=== PATIENT | male | born 1950 | race Two or more races ===

== ENCOUNTER 2025-09-11 11:57 | Emergency (ER) | payer MEDICARE, SELFPAY ==
[2025-09-11 12:03] VITALS: BP 138/74; PULSE 63; RESP 16; TEMP 36.7; O2SAT 95; BMI 33.6
--- NOTE | 2025-09-11 12:10 | XR_ITS ---
Examination: Fingers, right hand third digit 3 views Technique: AP, oblique, lateral views right hand third digit. Exam date and time: September 11, 2025, 12:35 p.m. INDICATIONS: Patient smashed hand third digit on the car door today with pain FINDINGS: Severe osteopenia No acute fracture No dislocation No foreign body IMPRESSION: No acute fracture
[2025-09-11] MEDS: LIDOCAINE HCL 1% 20 ML VIAL INFL (12:55)
--- NOTE | 2025-09-11 12:58 | PD.EDWOUND ---
ED Wound/Laceration-RME/HPI General Chief Complaint: Wound/Laceration Stated Complaint: SMASHED FINGER IN DOOR. R 3RD DIGIT Time Seen by Provider: 09/11/25 11:59 Arrival date/time: 09/11/25 11:57 75-year-old male presents to the emergency department today stating that he accidentally smashed his finger on his right hand in a door just prior to arrival. Patient injured his right hand third digit Limitations: no limitations Related Data Previous Rx's ?Medication ?Instructions ?Recorded cephalexin 500 mg capsule 500 mg PO BID 7 days #14 caps 09/11/25 ibuprofen 800 mg tablet 800 mg PO TID PRN pain #30 tabs 09/11/25 Allergies Allergy/AdvReac Type Severity Reaction Status Date / Time No Known Allergies Allergy Verified 09/11/25 11:58 Review of Systems Review of Systems Systems Reviewed: All systems reviewed, normal except as documented Constitutional Constitutional: Reports system reviewed and no additional complaints, except as documented, Denies fever(s) and Denies headache(s) Eyes Eyes: Reports system reviewed and no additional complaints, except as documented and Denies blurry vision ENT Ears, Nose, Mouth, and Throat: Reports system reviewed and no additional complaints, except as documented, Denies headache(s), Denies nasal congestion and Denies nasal discharge Cardiovascular Cardiovascular: Reports system reviewed and no additional complaints, except as documented, Denies chest pain and Denies dyspnea Respiratory Respiratory: Reports system reviewed and no additional complaints, except as documented, Denies chest congestion, Denies cough and Denies dyspnea Gastrointestinal Gastrointestinal: Reports system reviewed and no additional complaints, except as documented and Denies abdominal pain Integumentary/Breasts Skin/Breast: Reports system reviewed and no additional complaints, except as documented, Denies rash and Reports wounds (Laceration right hand middle finger) Neurologic Neurologic: Reports system reviewed and no additional complaints, except as documented, Reports as per HPI and Denies headache(s) Past Medical History Social History SMOKING STATUS: Never smoker ED Exam General Limitations: Present no limitations General appearance: Present alert and in no apparent distress Head Head exam: Present atraumatic Eye Eye exam: Present normal appearance, PERRL and EOMI ENT ENT exam: Present normal exam, normal oropharynx and mucous membranes moist Neck Neck exam: Present normal inspection, full ROM and trachea midline Chest Chest inspection: Present normal inspection and symmetric chest wall rise Respiratory Respiratory exam: Present normal lung sounds bilaterally Cardiovascular Cardiovascular exam: Present regular rate, normal rhythm and normal heart sounds Abdominal Exam Abdominal exam: Present soft and normal bowel sounds Extremities Exam Extremities exam: Present full ROM, tenderness, normal capillary refill and joint swelling (Mild swelling, laceration distal aspect of the right middle finger) Back Exam Back exam: Present normal inspection and full ROM Neurological Exam Neurological exam: Present alert, oriented X3 and CN II-XII intact Psychiatric Psychiatric exam: Present normal affect and normal mood Skin Skin exam: Present warm, dry and other (Mild swelling, laceration distal aspect of the right middle finger) Course Quality Measures none Orders Category Date Time Status Set Up Suture Tray STAT Care 09/11/25 12:10 Completed Wound Care NOW Care 09/11/25 12:10 Completed XR finger RT min 2V Stat Exams 09/11/25 12:10 Completed Lidocaine 1% 20 ml [Xylocaine 1% 20 ML] Med 09/11/25 12:10 Discontinued 20 ml INFL X1 ONE cephALEXin [Keflex] Med 09/11/25 12:10 Discontinued 500 mg PO X1 ONE Vital Signs Vital signs: Vital Signs Temperature 98.1 F 09/11/25 12:03 Pulse Rate 63 09/11/25 12:03 Respiratory Rate 16 09/11/25 12:03 Blood Pressure 138/74 H 09/11/25 12:03 Pulse Oximetry (%) 95 09/11/25 12:03 Oxygen Delivery Method Room Air 09/11/25 12:03 O2 saturation 95% room air within normal limits PROCEDURES: Laceration Laceration 1: Site: hand Side (If applicable): right Size (cm): 3 Description: irregular Depth: simple, single layer Local Anesthetic: lidocaine 1% Amount of anesthesia used (mL): 8 Pre-repair: irrigated extensively Skin layer closed with: nylon Suture size (cm): 4-0 Number of sutures: 8 Technique: simple, interrupted Wound / Laceration MDM Narrative MDM Narrative:: On exam patient well-appearing does not appear ill or toxic patient has a laceration right hand middle finger Wound irrigated copiously laceration repaired patient reports tetanus up-to-date Patient given dose of antibiotics prophylactically and discharged home with antibiotics On exam patient has no evidence of tendon or ligamentous injury patient has full range of motion of the digit Explained to the patient patient should have sutures removed in 10 days for worsening symptoms or concerns return immediately Patient data External records reviewed:: [facility] previous records Clinical information provided by:: patient Social determinants that could affect healthcare access:: none Patient has the following chronic illnesses:: None How is presenting disease/condition affected by chronic disease/condition?: no chronic disease Evaluation data The following diagnostics were reviewed and interpreted by me:: radiology exam(s) Lab and/or radiology exams considered but not ordered:: Radiology obtained Interpretation Summary: Reviewed by me Medications / Prescriptions Medications or Prescriptions considered but not ordered:: Given Medication administrations:: Medication Administration History Discontinued Medications Cephalexin HCl (Cephalexin 250 Mg Capsule) 500 mg PO X1 ONE Stop: 09/11/25 12:11 Last Admin: 09/11/25 12:54 Dose: 500 mg Documented By: Lidocaine HCl (Lidocaine Hcl 1% 20 Ml Vial) 20 ml INFL X1 ONE Stop: 09/11/25 12:11 Last Admin: 09/11/25 12:55 Dose: 20 ml Documented By: Given Consultations Consultation(s) initiated? (list below): No Diagnosis Wound Differential Diagnosis: laceration, abscess and abrasion Most likely diagnosis given after review of the tests above:: Laceration Admission Indicated Admission indicated?: not indicated Admission Request Was there a request for admission?: No Disposition Plan Disposition Plan: Discharge Discharge Attestation Discharge Attestation: The patient and all family members were given an opportunity to ask questions and understood the discharge instructions. Discharge instructions specifically effects, indications for sooner follow up or return to the emergency department, and the expected course of current diagnosis. Patient condition: Stable Discharge Plan Plan Patient Disposition: HOME (Self Care) Discharge Disposition comment: Stable Prescriptions/Referrals Prescriptions/Med Rec: New ibuprofen 800 mg tablet 800 mg PO TID PRN (Reason: pain) Qty: 30 0RF cephalexin 500 mg capsule 500 mg PO BID 7 Days Qty: 14 0RF Referrals: No Primary/Family,Physician [Primary Care Provider] - 09/12/25 Problem List Clinical Impression: Laceration of finger of right hand Patient/Caregiver Discharge Instructions Education Materials: ED Laceration: All Closures Additional Instructions: Please follow up with your primary care doctor in the next 24-48hrs for any worsening symptoms return here immediately Print Language: Irish Stand Alone Forms: Marsha Award Info., Patient Portal Info Letter PA/BILLING AND ACCOUNTING STAFF ASSISTANT Supervising Physician PA/BILLING AND ACCOUNTING STAFF ASSISTANT Supervising Physician: dr [email or web address]
== END 2025-09-11 13:15 | disposition home or self-care (01) ==
PROVIDERS: Emergency Provider Nurse Practitioner Primary Care
DX: S61.214A Laceration without foreign body of right ring finger without damage to nail, initial encounter (principal)
CPT/HCPCS: 12002; 73140; 99283; J3490; A9270